=== PATIENT | female | born 1950 | race Caucasian/White ===

== ENCOUNTER 2024-07-29 23:33 | Emergency (ER) | payer MEDICARE ==
[~2024-07-29] VITALS: Ht 144.8 cm; Wt 55.0 kg
[~2024-07-29 23:33] MED LIST: ASPI-1497 PO
[2024-07-29 23:56] VITALS: TEMP 98; O2SAT 100
[2024-07-30 00:19] LABS: BASOPHILS % 0.2 % (0.0-2.0); EOSINOPHILS % 0.5 % (0.0-5.0); HEMATOCRIT. 35.6 % (36.0-48.0); LYMPHOCYTES % 15.5 % (20.0-50.0); MEAN CORPUSCULAR HEMOGLOBIN 32.5 pg (28.0-32.0); MEAN CORPUSCULAR HGB CONC 33.8 g/dL (31.0-37.0); MEAN CORPUSCULAR VOLUME 96.1 fL (81.0-99.0); MEAN PLATELET VOLUME 8.4 fl (7.4-10.4); MONOCYTES % 3.5 % (2.0-8.0); NEUTROPHILS % 80.3 % (40.0-76.0); PLATELET 235 x1000/uL (130-400); RED CELL DISTRIBUTION WIDTH 13.4 % (11.6-14.6); WHITE BLOOD COUNT 13.8 x1000/uL (4.5-11.0)
[2024-07-30 00:23] LABS: CHLORIDE 102 mEq/L (98-107); POTASSIUM 3.8 mEq/L (3.5-5.1)
[2024-07-30 00:24] LABS: CARBON DIOXIDE 29 mEq/L (21-32); SODIUM 136 mEq/L (136-145)
[2024-07-30 00:25] LABS: CALCIUM 9.6 mg/dL (8.7-10.4)
[2024-07-30 00:29] LABS: CREATININE 0.8 mg/dL (0.6-1.0)
[2024-07-30 00:30] LABS: GLUCOSE 136 mg/dL (70-105); UREA NITROGEN BLOOD 24 mg/dL (9-23)
[2024-07-30 00:31] LABS: ALANINE AMINOTRANSFERASE 13 IU/L (10-49)
[2024-07-30 00:32] LABS: ALBUMIN 4.5 g/dL (3.2-4.8); ASPARTATE AMINOTRANSFERASE 20 IU/L (<34); BILIRUBIN DIRECT 0.1 mg/dL (<=3.0); BILIRUBIN TOTAL 0.6 mg/dL (0.1-1.0); PROTEIN TOTAL 7.6 g/dL (6.0-8.3)
[2024-07-30] MEDS: ONDANSETRON HCL 4MG/2ML INJ IV STA ×2 (00:59→01:33)
[2024-07-30] MEDS: MORPHINE SULFATE 4 MG/ML INJ (FOR IV/IM USE) IV ONE (00:59)
[2024-07-30] MEDS: SODIUM CHLORIDE 0.9% 1,000 ML IV ONE ×2 (01:32→01:33)
[2024-07-30] MEDS: MORPHINE SULFATE 4 MG/ML INJ (FOR IV/IM USE) IV STA (01:32)
[2024-07-30 02:55] LABS: CLARITY URINE CLEAR (CLEAR); COLOR URINE YELLOW (YELLOW); GLUCOSE URINE NEGATIVE (NEGATIVE); KETONES URINE 1+ (NEGATIVE); LEUKOCYTE ESTERASE URINE NEGATIVE (NEGATIVE); NITRITE URINE NEGATIVE (NEGATIVE); OCCULT BLOOD URINE NEGATIVE (NEGATIVE); PROTEIN URINE NEGATIVE (NEGATIVE); SPECIFIC GRAVITY URINE 1.013 (1.005-1.030); UROBILINOGEN URINE 0.2 E.U./dL (0.2-1.0)
[2024-07-30 04:04] VITALS: BP 132/55; PULSE 51; RESP 9; O2SAT 98
== END 2024-07-30 04:45 | disposition home or self-care (01) ==
LOC: ER 07-30 00:24
DX: K40.90 Unilateral inguinal hernia, without obstruction or gangrene, not specified as recurrent (principal); R11.0 Nausea
CPT/HCPCS: 99285; 74176; 96374; 96361; 96375; 80076; 80048; 81003; 85025; 36415; 96376; J2405; J2270; J7030